=== PATIENT | male | born 1930 ===

== ENCOUNTER → 2018-09-11 | Outpatient (REF) | payer MEDICARE, OTHER ==
[2018-09-11 16:05] LABS: RHEUMATOID FACTOR QUANT < 10.0 IU/ML (<15.0)
[2018-09-11 16:06] LABS: VITAMIN B12 LEVEL 383 PG/ML (247-911)
[2018-09-11 16:07] LABS: FOLATE > 24.0 NG/ML (>5.4)
[2018-09-11 16:09] LABS: HEMOGLOBIN A1c 7.3 %
[2018-09-17 09:13] LABS: ANTINUCLEAR ANTIBODIES DIRECT Negative (Negative); CERULOPLASMIN 19.8 mg/dL (16.0-31.0); COPPER PLASMA 87 ug/dL (72-166); LEAD BLOOD ADULT <1 ug/dL (0-4); MERCURY LEVEL None Detected ug/L (0.0-14.9); VITAMIN B1 LEVEL WHOLE BLOOD 174.8 nmol/L (66.5-200.0); VITAMIN B6,PYRIDOXAL PHOSPHATE 3.9 ug/L (5.3-46.7); VITAMIN E(ALPHA TOCOPHEROL) 15.7 mg/L (9.0-29.0); VITAMIN E(GAMMA TOCOPHEROL) 0.5 mg/L (0.5-4.9)
[2018-09-17 10:28] LABS: DRVV SCREEN 38.5 SEC
== END ==
LOC: M LABNEURO 14:23
PROVIDERS: ATTEND Psychiatry & Neurology Neurology
DX: G20 Parkinson's disease (principal)